=== PATIENT | female | born 2000 | race American Indian/Alaskan Native ===

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

== ENCOUNTER 2019-05-26 18:24 | Emergency (ER) | payer SELFPAY ==
[2019-05-26 18:40] VITALS: BP 121/67
--- NOTE | 2019-05-26 18:43 | Event Note ---
ED Screening Note Date of service: 05/26/19 Time: 18:39 ED Screening Note: Patient states she injured left ankle while doing PT during [employer] drills yesterday. Reports stinging pain while running. + swelling and pain medially Worse with weight bearing, movement, or palpation. Denies hearing/feeling pull, numbness or tingling, weakness, or injury This initial assessment/diagnostic orders/clinical plan/treatment(s) is/are subject to change based on patients health status, clinical progression and re- assessment by fellow clinical providers in the ED. Further treatment and workup at subsequent clinical providers discretion. Patient/guardian urged not to elope from the ED as their condition may be serious if not clinically assessed and managed. Initial orders include: XR left ankle
--- NOTE | 2019-05-26 19:27 | XRay Report ---
LEFT ANKLE 3 VIEWS INDICATION / CLINICAL INFORMATION: Medial swelling and pain involving the left ankle. COMPARISON: None available. FINDINGS: BONES / JOINT(S): The joint spaces are well-maintained. There is no evidence of fracture, dislocation or destructive lesion. SOFT TISSUES: No significant abnormality. ADDITIONAL FINDINGS: None. IMPRESSION: Negative study. Signer Name: Stevan Larson MD Signed: 05/26/2019 7:22 PM Workstation Name: [id number]
[2019-05-26] MEDS ORDERED: HYDROcodone/ACETAMINOPHEN 5-325 MG TAB PO ONE (21:24)
[2019-05-26] MEDS ORDERED: ONDANSETRON 4 MG ODT TAB PO ONE (21:24)
--- NOTE | 2019-05-26 22:02 | Emergency Department Report ---
ED Lower Extremity HPI - General Chief Complaint: Extremity Injury, Lower Stated Complaint: PT TEST/LFT ANKLE INJURY/PAIN Time Seen by Provider: 05/26/19 18:38 Source: patient Mode of arrival: Ambulatory Limitations: No Limitations - History of Present Illness Initial Comments: Patient is a 18-year-old -[place] female with no past medical history who presents to the ED with complaint of acute onset persistent severe left ankle pain and swelling with left foot pain after she twisted her left ankle and foot when on a drill 24 hours ago. Patient states that the pain is worse with ambulation or bearing weight. Patient denies fall, numbness and tingling or weakness of left leg, dizziness, chest pain, shortness of breath, syncope, seizures, low back pain, hip pain, knee pain, change in vision, nausea and vomiting. MD Complaint: ankle injury (PAIN ), foot injury (LEFT) -: Sudden, hour(s) (24) Injury: Ankle: Left (pain), Foot: Left (pain) Type of Injury: inversion, eversion Place: work Severity: severe Severity scale (0 -10): 7 Improves With: nothing Worsens With: weight bearing, movement, palpation Context: other (twisted left ankle ) Associated Symptoms: snap/pop sensation, swelling, able to partially bear weight. denies: numbness, tingling - Related Data Previous Rx's Medication Instructions Recorded Last Taken Type Dextromethorphan/Benzocaine 1 each PO Q4HR PRN #20 lozenge 05/26/18 Unknown Rx [Cepacol Sorethroat-Cough Alie] Fluticasone [Flonase] 1 spray NS QDAY #1 bottle 05/26/18 Unknown Rx guaiFENesin [Mucinex] 600 mg PO BID #20 tab.er.12h 05/26/18 Unknown Rx Albuterol INH(or & Nicu Only) 2 puff IH QID PRN #1 inhalation 08/04/18 Unknown Rx [ProAir HFA Inhaler] Amoxicillin/Potassium Clav 1 each PO BID 10 Days #20 tablet 08/04/18 Unknown Rx [Augmentin 875-125 Tablet] Ibuprofen [Motrin 600 MG tab] 600 mg PO Q8H PRN #30 tablet 08/04/18 Unknown Rx Oxymetazoline 0.05% [Afrin] 2 spray NS PC PRN 3 Days #1 bottle 05/18/19 Unknown Rx dexAMETHasone [Decadron] 4 mg PO BID 2 Days #4 tablet 08/04/18 Unknown Rx diphenhydrAMINE [Benadryl CAP] 25 mg PO Q8HR PRN #30 capsule 08/04/18 Unknown Rx Cyclobenzaprine [Flexeril] 10 mg PO Q8H PRN #21 tablet 05/26/19 Unknown Rx Ibuprofen [Motrin] 600 mg PO Q8H PRN #30 tablet 05/26/19 Unknown Rx Allergies Allergy/AdvReac Type Severity Reaction Status Date / Time No Known Allergies Allergy Verified 05/26/18 13:20 ED Review of Systems ROS: Stated complaint: PT TEST/LFT ANKLE INJURY/PAIN Other details as noted in HPI Constitutional: denies: chills, fever Eyes: denies: eye pain, eye discharge, vision change ENT: denies: ear pain, throat pain Respiratory: denies: cough, shortness of breath, wheezing Cardiovascular: denies: chest pain, palpitations Endocrine: no symptoms reported Gastrointestinal: denies: abdominal pain, nausea, diarrhea Genitourinary: denies: urgency, dysuria, discharge Musculoskeletal: joint swelling (Left ankle swelling), arthralgia (Left ankle and foot pain). denies: back pain Skin: denies: rash, lesions Neurological: denies: headache, weakness, paresthesias Psychiatric: denies: anxiety, depression Hematological/Lymphatic: denies: easy bleeding, easy bruising ED Past Medical Hx - Past Medical History Previous Medical History?: Yes Hx Asthma: Yes - Surgical History Past Surgical History?: No - Social History Smoking Status: Never Smoker Substance Use Type: None - Medications Home Medications: Home Medications Medication Instructions Recorded Confirmed Last Taken Type Dextromethorphan/Benzocaine 1 each PO Q4HR PRN #20 lozenge 05/26/18 Unknown Rx [Cepacol Sorethroat-Cough Alie] Fluticasone [Flonase] 1 spray NS QDAY #1 bottle 05/26/18 Unknown Rx guaiFENesin [Mucinex] 600 mg PO BID #20 tab.er.12h 05/26/18 Unknown Rx Albuterol INH(or & Nicu Only) 2 puff IH QID PRN #1 inhalation 08/04/18 Unknown Rx [ProAir HFA Inhaler] Amoxicillin/Potassium Clav 1 each PO BID 10 Days #20 tablet 08/04/18 Unknown Rx [Augmentin 875-125 Tablet] Ibuprofen [Motrin 600 MG tab] 600 mg PO Q8H PRN #30 tablet 08/04/18 Unknown Rx Oxymetazoline 0.05% [Afrin] 2 spray NS PC PRN 3 Days #1 bottle 08/04/18 Unknown Rx dexAMETHasone [Decadron] 4 mg PO BID 2 Days #4 tablet 08/04/18 Unknown Rx diphenhydrAMINE [Benadryl CAP] 25 mg PO Q8HR PRN #30 capsule 08/04/18 Unknown Rx Cyclobenzaprine [Flexeril] 10 mg PO Q8H PRN #21 tablet 05/26/19 Unknown Rx Ibuprofen [Motrin] 600 mg PO Q8H PRN #30 tablet 05/26/19 Unknown Rx ED Physical Exam - General Limitations: No Limitations General appearance: alert, in no apparent distress - Head Head exam: Present: atraumatic, normocephalic, normal inspection - Eye Eye exam: Present: normal appearance, PERRL, EOMI Pupils: Present: normal accommodation - ENT ENT exam: Present: normal exam, normal orophraynx, mucous membranes moist, TM's normal bilaterally, normal external ear exam - Neck Neck exam: Present: normal inspection, full ROM. Absent: tenderness, lymphadenopathy - Respiratory Respiratory exam: Present: normal lung sounds bilaterally. Absent: respiratory distress, wheezes, rales, rhonchi, chest wall tenderness, accessory muscle use, decreased breath sounds, prolonged expiratory - Cardiovascular Cardiovascular Exam: Present: regular rate, normal rhythm, normal heart sounds. Absent: systolic murmur, diastolic murmur, rubs, gallop - GI/Abdominal GI/Abdominal exam: Present: soft, normal bowel sounds. Absent: tenderness, guarding, hyperactive bowel sounds - Extremities Exam Extremities exam: Present: normal inspection, tenderness (Palpable left ankle tenderness with limited range of motion due to pain), normal capillary refill, joint swelling (Mild swelling of left ankle joint). Absent: full ROM (Limited range of motion due to pain of left ankle), calf tenderness - Back Exam Back exam: Present: normal inspection, full ROM. Absent: tenderness, muscle spasm, paraspinal tenderness - Neurological Exam Neurological exam: Present: alert, oriented X3, CN II-XII intact, normal gait, reflexes normal - Psychiatric Psychiatric exam: Present: normal affect, normal mood - Skin Skin exam: Present: warm, dry, intact, normal color. Absent: rash ED Course Vital Signs 05/26/19 05/26/19 05/26/19 18:29 18:32 21:31 Temperature 97.9 F 98.6 F Pulse Rate 79 84 Respiratory 16 16 18 Rate Blood Pressure 121/67 121/67 O2 Sat by Pulse 98 99 Oximetry ED Lower Extremity MDM - Radiology Data Radiology results: report reviewed, image reviewed Left ankle x-ray shows no acute fractures or subluxations. - Medical Decision Making This is a 18-year-old female who presented to the ED with acute onset persistent left ankle pain after she twisted the left ankle while on a drill 24 hours ago. In the ED, patient is alert and oriented x3 and is not in distress but appears to be in pain. Patient was treated for pain in the ED and on reevaluation, patient's pain is well controlled with medications. Patient symptoms are likely due to muscle strain or muscle sprain of the left ankle joint. Patient left ankle was splinted with Jovanny wrap and patient fitted with crutches. Patient was discharged home on pain medications and muscle relaxants and advised to follow-up with her primary care physician in 7 to 10 days for reevaluation or return to the ED immediately if symptoms get worse. - Differential Diagnosis ankle sprain; ankle fracture; muscle strain Critical care attestation.: If time is entered above; I have spent that time in minutes in the direct care of this critically ill patient, excluding procedure time. ED Disposition Clinical Impression: Severe sprain of left ankle Qualifiers: Encounter type: initial encounter Qualified Code(s): S93.402A - Sprain of unspecified ligament of left ankle, initial encounter Muscle strain of left foot Qualifiers: Encounter type: initial encounter Qualified Code(s): S96.912A - Strain of unspecified muscle and tendon at ankle and foot level, left foot, initial encounter Disposition: - TO HOME OR SELFCARE Is pt being admited?: No Does the pt Need Aspirin: No Condition: Stable Instructions: Muscle Strain (ED), Ankle Exercises (GEN), Ankle Sprain (ED) Additional Instructions: Take medications with food, drink plenty of fluids and follow-up with your primary care physician in 7 to 10 days for reevaluation. Return to the ED immediately if symptoms get worse. Prescriptions: Cyclobenzaprine [Flexeril] 10 mg PO Q8H PRN #21 tablet PRN Reason: Muscle Spasm Ibuprofen [Motrin] 600 mg PO Q8H PRN #30 tablet PRN Reason: Pain Referrals: TAMEKA CUEVAS MD [Staff Physician] - 7-10 days Forms: Work/School Release Form(ED) Time of Disposition: 22:03 Print Language: ERITREAN
== END 2019-05-26 22:22 | disposition home or self-care (01) ==
LOC: ED 18:24
DX: S93.402A Sprain of unspecified ligament of left ankle, initial encounter (principal); S96.912A Strain of unspecified muscle and tendon at ankle and foot level, left foot, initial encounter; J45.909 Unspecified asthma, uncomplicated; Z79.899 Other long term (current) drug therapy; X58.XXXA Exposure to other specified factors, initial encounter; Y93.89 Activity, other specified; Y92.89 Other specified places as the place of occurrence of the external cause; Y99.8 Other external cause status
CPT/HCPCS: Q0162

== ENCOUNTER 2020-04-11 18:10 | Emergency (ER) | payer SELFPAY | END 2020-04-11 21:00 | disposition left against medical advice (07) | LOC: ED 18:10 | DX: R51.9 Headache, unspecified (principal); Z53.21 Procedure and treatment not carried out due to patient leaving prior to being seen by health care provider ==